=== PATIENT | female | born 1995 | race Caucasian/White ===

== ENCOUNTER → 2018-10-15 | Outpatient (CLI) | payer MEDICAID, SELFPAY ==
[2017-06-08 06:29] VITALS: BMI 33.0
[2018-10-15 20:39] LABS: Chlamydia Trachomatis by PCR Negative (Negative); Neisserai gonorrhoeae by PCR Negative (Negative); Probe Check PASS; Sample Adequacy Control PASS; Specimen Processing Control PASS
[2018-10-18 13:32] LABS: HPV Reflexed? NOT INDICATED
== END | disposition home or self-care (01) ==
PROVIDERS: Family Provider Family Medicine; PCP Family Medicine; Referring Provider Obstetrics & Gynecology; Visit Provider Obstetrics & Gynecology
DX: Z32.01 Encounter for pregnancy test, result positive (principal); Z12.4 Encounter for screening for malignant neoplasm of cervix; Z11.3 Encounter for screening for infections with a predominantly sexual mode of transmission
CPT/HCPCS: 87491; 87591; 88175; G0145

== ENCOUNTER → 2018-10-30 | Outpatient (CLI) | payer MEDICAID, SELFPAY ==
[2017-06-08 06:29] VITALS: BMI 33.0
[2018-10-30 16:40] LABS: Absolute Lymphocyte Count 1.82 X10^3/ul (0.83-4.51); Absolute Neutrophil Count 6.4 X10^3/uL (2.0-7.7); Basophil# 0.02 X10^3/uL; Basophil% 0.2 % (0-1); Eosinophil# 0.06 X10^3/uL; Eosinophils% 0.7 % (0-5); Hematocrit 43.8 % (37-47); Lymphocyte # 1.82 X10^3/ul (4.0); Lymphocyte % 20.9 % (19-41); Mean Corp Hgb Conc 34.2 g/gl (32-36); Mean Corpuscular Hgb 28.4 pg (27.0-32.0); Mean Platelet Vol. 9.5 fl (6.2-12.0); Monocyte# 0.45 X10^3/uL; Monocyte% 5.2 % (0-10); Neutrophil # 6.36 X10^3/uL (2.7-7.7); Neutrophil % 72.9 % (47-70); Platelet Count 332 K/mm3 (150-450); RBC Distribution Width CV 12.8 % (11.6-14.6); RBC Distribution Width SD 38.6 fl (35.1-43.9); Red Blood Count 5.28 M/mm3 (4.2-5.4); White Blood Count 8.7 K/mm3 (4.4-11.0)
[2018-10-30 16:41] LABS: Color, Urine Yellow (Yellow); Glucose, Dipstick Normal (Normal); Ketone-Dipstick Negative (Negative); Leukocyte Esterase-Dipstick Negative /ul (Negative); Nitrite-Dipstick Negative (Negative); Occult Blood-Urine 10 /ul (Negative); Protein-Dipstick Negative (Negative); Urine Bilirubin Dipstick Negative (Negative); Urine Clarity Clear (Clear); Urine Urobilinogen Normal (Normal); Urine pH 6.5 (5.0 - 8.0)
[2018-10-30 16:43] LABS: POSITIVE COUNT NO; POSITIVE DIFFERENTIAL NO; POSITIVE MORPHOLOGY NO
[2018-10-30 16:44] LABS: COTININE Drug Screen Negative (<200 ng/mL)
[2018-10-30 16:53] LABS: Amphetamine Urine VISTA NEGATIVE (<1000 ng/mL); Barbiturate Urine VISTA NEGATIVE (< 200 ng/mL); Benzodiazepine Urine VISTA NEGATIVE (< 200 ng/mL); Cocaine Urine VISTA NEGATIVE (< 300 ng/mL); Ecstacy Urine VISTA NEGATIVE (< 500 ng/mL); Methadone Urine VISTA NEGATIVE (< 300 ng/mL); PCP Urine VISTA NEGATIVE (< 25 ng/mL); THC Urine VISTA NEGATIVE (< 50 ng/mL); Vista UDS pH Range 6
[2018-10-30 17:10] LABS: Thyroid Stim Hormone (TSH) 1.39 uIU/mL (0.358-3.74)
[2018-10-30 17:51] LABS: HIV - WCH Non-Reactive (Nonreactive); Rubella IgG 53.5 IU/mL
[2018-11-01 03:40] LABS: Prenatal RPR NONREACTIVE (NONREACTIVE)
[2018-11-01 11:32] LABS: HEPATITIS B SURFACE AG Negative (Negative); Hep C Antibodies 0.1 s/co ratio (0.0-0.9)
== END | disposition home or self-care (01) ==
LOC: WOBLAB 15:30
PROVIDERS: Visit Provider Obstetrics & Gynecology
DX: Z34.81 Encounter for supervision of other normal pregnancy, first trimester (principal)
CPT/HCPCS: 36415; 80307; 81002; 84443; 85025; 86703; 86762; 86803; 87340

== ENCOUNTER → 2018-12-24 | Outpatient (CLI) | payer MEDICAID, SELFPAY | END | disposition home or self-care (01) | PROVIDERS: Referring Provider Obstetrics & Gynecology; Visit Provider Obstetrics & Gynecology | DX: Z34.82 Encounter for supervision of other normal pregnancy, second trimester (principal) | CPT/HCPCS: 36415; 82105; 82677; 84702 ==

== ENCOUNTER → 2019-03-21 12:59 | Outpatient (CLI) | payer MEDICAID, SELFPAY ==
[2019-03-21 14:14] LABS: Glucose Challenge Gest 1H 50g 85 mg/dL (70-140)
[2019-03-21 14:17] LABS: Hematocrit 38.4 % (37-47); Hemoglobin 12.3 g/dL (12.0-15.0); Mean Corpuscular Hgb 27.2 pg (27.0-32.0); Mean Platelet Vol. 9.4 fl (6.2-12.0); Platelet Count 248 K/mm3 (150-450); RBC Distribution Width CV 13.9 % (11.6-14.6); RBC Distribution Width SD 42.6 fl (35.1-43.9); Red Blood Count 4.52 M/mm3 (4.2-5.4); White Blood Count 8.4 K/mm3 (4.4-11.0)
== END ==
PROVIDERS: Visit Provider Obstetrics & Gynecology
DX: Z34.83 Encounter for supervision of other normal pregnancy, third trimester (principal)
CPT/HCPCS: 36415; 82950; 85027

== ENCOUNTER → 2019-05-15 16:40 | Outpatient (CLI) | payer MEDICAID, SELFPAY ==
[2017-06-08 06:29] VITALS: BMI 33.0
== END ==
PROVIDERS: Visit Provider Obstetrics & Gynecology
DX: Z36.85 Encounter for antenatal screening for Streptococcus B (principal)
CPT/HCPCS: 87081

== ENCOUNTER 2019-06-14 09:08 | Inpatient (IN) | payer MEDICAID, SELFPAY ==
[2019-06-14 09:36] VITALS: BMI 77.9
[2019-06-14 10:10] LABS: Absolute Lymphocyte Count 1.49 X10^3/uL (0.83-4.51); Absolute Neutrophil Count 6.3 X10^3/uL (2.0-7.7); Basophil# 0.03 X10^3/uL; Basophil% 0.4 % (0-1); Eosinophil# 0.08 X10^3/uL; Hematocrit 38.6 % (37-47); Hemoglobin 13.5 g/dL (12.0-15.0); Lymphocyte # 1.49 X10^3/ul (4.0); Lymphocyte % 17.7 % (19-41); Mean Corpuscular Hgb 28.6 pg (27.0-32.0); Mean Corpuscular Volume 81.8 fL (81-99); Mean Platelet Vol. 9.5 fl (6.2-12.0); Monocyte# 0.45 X10^3/uL; Monocyte% 5.3 % (0-10); NRBC Flagged by Analyzer 0 % (0-5); Neutrophil # 6.34 X10^3/uL (2.7-7.7); Neutrophil % 75.2 % (47-70); Platelet Count 212 K/mm3 (150-450); RBC Distribution Width CV 14.5 % (11.6-14.6); Red Blood Count 4.72 M/mm3 (4.2-5.4); White Blood Count 8.4 K/mm3 (4.4-11.0)
--- NOTE | 2019-06-14 11:51 | HP.PCM_ITS ---
- Problem List (1) Active labor at term Status: Acute (2) 40 weeks gestation of Status: Acute History Date of Admission: 06/14/19 Final NOAH: 06/08/19 Final NOAH Source: US <20 weeks Gestational age: 40 Weeks and 6 Days History of this : This is a 23 year-old, G [2], P [1], at 40 6/7 weeks gestational age c/o contractions. Allergies No Known Allergies Allergy (Verified 06/08/17 06:00) Home Medications: Home Medications Ibuprofen [Motrin] 800 mg PO TID PRN PRN #30 tab 06/08/17 Vits [Prenatabs FA] 1 tablet PO DAILY 06/08/17 Smoking Status: Former smoker Alcohol: None Number of Fetus(es): 1 NST - FHR Rate Baby A Baseline: 145 Variability:: Moderate Accelerations:: 15 x 15 Decelerations:: None NST Reactive:: Yes FHR Category:: Category I Uterine Activity:: 3-4/10 min History Past Pregnancies: Past Pregnancies Delivery Date Name GA/ Weeks Outcome Route Wt Infant Sex Labor Length Anesthesia Delivery Location FOB 05/2017 [facility] 41 Living [id number] M 10 None [facility] Labs: Mom's Problem List Problem Status Onset Code 40 weeks gestation of Acute [id number].[id number] Mom's Labs & Results 06/14/19 06/14/19 09:57 09:57 WBC 8.4 RBC 4.72 Hgb 13.5 Hct 38.6 MCV 81.8 MCH 28.6 MCHC 35.0 RDW Std Deviation 42.0 RDW Coeff of Gail 14.5 Plt Count 212 MPV 9.5 Immature Gran % (Auto) 0.400 Neut % (Auto) 75.2 H Lymph % (Auto) 17.7 L [place] % (Auto) 5.3 Eos % (Auto) 1.0 Baso % (Auto) 0.4 Absolute Neuts (auto) 6.3 Absolute Lymphs (auto) 1.49 Nucleated RBC % 0 Blood Type A POSITIVE Antibody Screen NEGATIVE Course Did the patient receive Yes care? Labs Blood Type: A RH: POSITIVE RPR/VDRL/Syphilis Nonreactive Rubella status Immune HbSAg Negative Date Done: 10/30/18 Chlamydia Negative Gonorrhea Negative HIV/AIDS Non-Reactive Group B Strep: Negative Current Obstetrical History Gestational Diabetes No Incompetent Cervix No Infertility No IUGR No Macrosomia No Hypertension/Pre-eclampsia No Placenta Previa/Abruption No PTL/PROM No Uterine anomaly No Oligohydramnios No Polyhydramnios No Multiple gestation No Past Medical History Asthma No Diabetes No Hypertension No Heart disease No Mitral valve prolapse No Neurologic/Seizure disorder/ No Migraines Kidney disease No Liver disease No Varicosities No Clotting disorders/Hx of DVT No Thyroid Dysfunction No Other medical diseases No Psychiatric disorders No Major trauma No Abnormal PAP smear No Sleep apnea No Mammogram in the last 2 years No Social History Marital Status: Alleged father Hamzah Hx Smoking Yes Smoking Status Former smoker Expected Delivery Method: Spontaneous Vaginal Physical Exam Vitals: avss General: Alert, Oriented x3, Cooperative, No apparent distress HEENT: Atraumatic, Normocephalic Cardiovascular: Regular rate, Regular Rhythm, Normal S1, Normal S2 Lungs: Normal air movement Abdomen: Soft, Non Tender, Non-Distended, Gravid Neurological: Neuro grossly intact PROGRAM EVALUATOR: Normal external genitalia Estimated gestational size: Appropriate for gestational size Presentation: Cephalic Cervix Dilation (cm): 4 Station: -2 Effacement (%): 90 Assessment/Plan All Active Problems 40 weeks gestation of (Acute) Active labor at term (Acute) This is a 23 year-old, G [2], P [1], at 40 6/7 weeks gestational age in labor. Expectant management
[2019-06-14] MEDS: Oxytocin 30 units/NS 500 ml 30 UNITS/500 ML IV.SOLN 334 UNITS IV (12:20)
--- NOTE | 2019-06-14 12:43 | PCM.OPRPT ---
Problem List (1) Active labor at term Status: Acute (2) 40 weeks gestation of Status: Acute Report of Operation Date of Procedure: 06/14/19 Pre-Operative Diagnosis: 40 6/7wga Surgery/Procedure Performed:: 40 6/7wga Vaginal Delivery Maternal Presentation: Active Labor Amniotic Membrane Rupture Type: Spontaneous Rupture of Membrane time: 06/14/19 1206 Amniotic Fluid Description: Clear Final NOAH: 06/08/19 Final NOAH Source: US <20 weeks Gestational age: 40 Weeks and 6 Days Date of Procedure: 06/14/19 Pre-Operative Diagnosis: 40 6/7wga Post-Operative Diagnosis: 40 6/7wga Surgery/ Procedure Performed: Spontaneous Vaginal Delivery Type of Anesthesia: None Description of Procedure: Patient was FD/+1 station and pushed to deliver head in MARYANNE. A nuchal cord was reduced. shoulders delivered with ease to reveal a male . The infant was placed on the maternal abdomen and further attended by nursery personnel. The cord was doubly clamped and cut. Cord gas specimen were obtained. The placenta delivered spontaneously and appeared intact on inspection. A first degree perineal laceration was repaired with 3-0 Vicryl Rapide. Good hemostasis attained. Sponge and needle counts correct x 2. Presentation: Vertex Placenta Disposition: [facility] Cord Vessel Description: 3 Vessels Cord Gases drawn per routine: ABG, VBG Cord Entanglement: Around neck x 1, loose Drain: Amos to straight drain Estimated Blood Loss: 200 ml A gender: Male (1 minute): 8 (5 minute): 9 Episiotomy Description: None Laceration: Midline, 1st degree Medications given after delivery: IV Pitocin Complications: None
[2019-06-14] MEDS: Ibuprofen 600 MG Tablet PO ×2 (13:34→20:07)
[2019-06-14 15:43] VITALS: BP 124/79; PULSE 80; RESP 16; TEMP 36.1
[2019-06-14] MEDS: Acetaminophen 500 MG Tablet 1000 MG PO (15:52)
--- NOTE | 2019-06-14 17:30 | NURSING ---
pt passed dark 50cc clot after . Fundus massaged to firm. Lochia small.
[2019-06-14 19:50] VITALS: BP 115/77; PULSE 81; RESP 18; TEMP 36.5
[2019-06-15] VITALS: BP 118/71; PULSE 84; RESP 16; TEMP 36.6
[2019-06-15 04:00] VITALS: BP 124/76; PULSE 76; RESP 16; TEMP 36.4
[2019-06-15 09:40] VITALS: BP 134/82; PULSE 92; RESP 20; TEMP 36.5
--- NOTE | 2019-06-15 10:12 | PCM.PN.OB ---
Patient Problems: Active and Suspected Problems 40 weeks gestation of (Acute) Subjective: Soniya reports her bottom is sore, but she has no difficulty walking. Denies urinary symptoms or heavy lochia. She feels well. Infant clusterfed overnight, nursing well. He is getting a circumcision this morning. Desires to go home today. Objective: AVSS - Physical Exam Vitals/I&O's: Vital Signs Temp Pulse Resp BP 97.7 F L 92 20 H 134/82 H 06/15/19 09:40 06/15/19 09:40 06/15/19 09:40 06/15/19 09:40 Oxygen Delivery Method Room Air Weight: 232.4 kg Body Mass Index (BMI) 77.9 Intake and Output for Last 24 Hours 06/13/19 06/14/19 06/15/19 23:59 23:59 23:59 Intake Total 500 / 500 Balance 500 / 500 General: Alert, Oriented x3, Cooperative, No apparent distress HEENT: Atraumatic, Normocephalic Lungs: Normal air movement Cardiovascular: Regular rate, Regular Rhythm, Normal S1, Normal S2 Abdomen: Soft, Non Tender, Non-Distended, - - Fundus firm and nontender at 1 FW below umbilicus, lochia scant Extremities: No edema, No Calf Tenderness Neurological: Neuro grossly intact Psych/Mental Status: Normal Affect, Appropriate, Alert and oriented to time, place, person, mood and affect Laboratory Results 06/14/19 09:57: Blood Type A POSITIVE, Antibody Screen NEGATIVE Current Medications Acetaminophen (Tylenol) 1,000 mg PO Q8H PRN PRN PRN Reason: Pain Score 1-3/10 Last Admin: 06/14/19 15:52 Dose: 1,000 mg Documented by: Bisacodyl (Dulcolax) 10 mg RECTAL UD PRN PRN Reason: If no BM Dibucaine (Dibucaine) 1 applic TOPICAL TID PRN PRN; Protocol PRN Reason: Discomfort Hydrocortisone (Hytone) 1 applic TOPICAL TID PRN PRN; Protocol PRN Reason: Discomfort Ibuprofen (Motrin) 600 mg PO Q6H PRN PRN PRN Reason: Pain Score 1-3/10 Last Admin: 06/14/19 20:07 Dose: 600 mg Documented by: Methylergonovine Maleate (Methergine) 0.2 mg IM X1 PRN PRN Reason: Excess bleeding/uterine atony Ondansetron HCl (Zofran) 4 mg IV Q4H PRN PRN PRN Reason: Nausea Senna/Docusate Sodium (Senokot-S, Tania-Colace) 1 - 2 tablet PO DAILY PRN PRN PRN Reason: Constipation Simethicone (Mylicon) 80 mg PO PCHS PRN PRN Reason: Indigestion/Stomach pain Sodium Chloride () 5 - 15 ml IV UD PRN PRN Reason: SALINE FLUSH Medical Necessity - Tobacco Use Smoking Status: Former smoker Assessment/Plan All Active Problems 40 weeks gestation of (Acute) Active labor at term (Acute) This is a 23 year-old, G [2], P [2001] PPD#1 s/p doing well. -A pos, Rub immune - -Routine care -LARC declined -d/c home today
--- NOTE | 2019-06-15 10:15 | DCINST_ITS ---
Discharge Diet: No Restrictions Discharge Activity: Return to Normal Activity, May Shower, May Take a Tub Bath May resume sexual activity in: 6 weeks Lifting Restrictions: 10-20 lb Suture Line Care: Avoid Pulling/Pushing Cleanse incision/area with: Soap & Water Additional Instructions: If you experience any of the following, contact your healthcare provider. * Bleeding that soaks a pad every hour for 2 hours * Fever 100.4 or higher * Unrelieved incision or abdominal pain * Swelling, redness, discharge or bleeding from your incision or episiotomy site * Your incision begins to separate * Problems urinating (including inability to urinate or burning while urinating). * Visual changes * Severe headache * Flu-like symptoms * Pain or redness in one of both of your breasts * Pain, warmth, tenderness or swelling in your legs, especially the calf area * Frequent nausea and vomiting * Symptoms of depression or anxiety If you experience any of the following, call 911 or go to the nearest Emergency Room. * Chest pain * Problems breathing * Seizure activity * Partial or complete paralysis of a body part, slurred speech, weakness or drooping of the face, or a sudden inability to walk or hold your balance Allergies/Adverse Reactions: Allergies No Known Allergies Allergy (Verified 06/08/17 06:00) Medications to take at Discharge Vits [Prenatabs FA] 1 tablet PO DAILY 06/08/17 Ibuprofen [Motrin] 600 mg PO Q8H PRN PRN #30 tab 06/15/19 Please Follow Up With: Clair Barajas MD When: 6 weeks Primary Care Physician: Benton Navarro MD [Primary Care Provider] - Test Results: Test results from this visit will be discussed in further detail at your follow- up appointment, if applicable.
--- NOTE | 2019-06-15 10:15 | PCM.DCVAG ---
Discharge Diet: No Restrictions Discharge Activity: Return to Normal Activity, May Shower, May Take a Tub Bath May resume sexual activity in: 6 weeks Lifting Restrictions: 10-20 lb Suture Line Care: Avoid Pulling/Pushing Cleanse incision/area with: Soap & Water Additional Instructions: If you experience any of the following, contact your healthcare provider. Bleeding that soaks a pad every hour for 2 hours Fever 100.4 or higher Unrelieved incision or abdominal pain Swelling, redness, discharge or bleeding from your incision or episiotomy site Your incision begins to separate Problems urinating (including inability to urinate or burning while urinating). Visual changes Severe headache Flu-like symptoms Pain or redness in one of both of your breasts Pain, warmth, tenderness or swelling in your legs, especially the calf area Frequent nausea and vomiting Symptoms of depression or anxiety If you experience any of the following, call 911 or go to the nearest Emergency Room. Chest pain Problems breathing Seizure activity Partial or complete paralysis of a body part, slurred speech, weakness or drooping of the face, or a sudden inability to walk or hold your balance Allergies/Adverse Reactions: Allergies No Known Allergies Allergy (Verified 06/08/17 06:00) Medications to take at Discharge Vits [Prenatabs FA] 1 tablet PO DAILY 06/08/17 Ibuprofen [Motrin] 600 mg PO Q8H PRN PRN #30 tab 06/15/19 Please Follow Up With: Clair Barajas MD When: 6 weeks Primary Care Physician: Benton Navarro MD [Primary Care Provider] - Test Results: Test results from this visit will be discussed in further detail at your follow-up appointment, if applicable.
[2019-06-15 10:16] VITALS: BMI 35.2
[2019-06-15 14:15] VITALS: BP 122/72; PULSE 88; RESP 24; TEMP 36.8
[2019-06-15 20:00] VITALS: BP 122/73; PULSE 89; RESP 16; TEMP 36.8
== END 2019-06-15 21:30 | disposition home or self-care (01) | DRG 560 ==
PROVIDERS: Admitting Provider Obstetrics & Gynecology; Family Provider Family Medicine; PCP Family Medicine; Referring Provider Obstetrics & Gynecology; Visit Provider Obstetrics & Gynecology
DX: O48.0 Post-term pregnancy (principal); O69.81X0 Labor and delivery complicated by cord around neck, without compression, not applicable or unspecified; O70.0 First degree perineal laceration during delivery; Z87.891 Personal history of nicotine dependence; Z3A.40 40 weeks gestation of pregnancy; Z37.0 Single live birth
CPT/HCPCS: 59025; 59050; 85025; 86850; 86900; 86901; 99218; G0378

== ENCOUNTER → 2021-01-24 14:13 | Outpatient (CLI) | payer MEDICAID, SELFPAY ==
--- NOTE | 2021-01-24 14:18 | US_ITS ---
STUDY: ULTRASOUND BREAST - RIGHT REASON FOR EXAM: Female, 25 years old. TECHNIQUE: Axial and longitudinal images of the RIGHT breast were performed with a high resolution ultrasound transducer. # OF IMAGES: 39 COMPARISON: Mammogram obtained on 01/24/2021 FINDINGS: RIGHT Breast: A targeted right breast ultrasound was performed of a questionable palpable lump in the superior lateral aspect of the right breast. No underlying masses or lesions are identified. The right breast parenchyma in the superior lateral right breast is normal. US/Breast Limited Unilateral IMPRESSION: Normal targeted right breast ultrasound. ASSESSMENT CATEGORY: BIRADS Category 1: Negative. A letter regarding these results will be sent to the patient by the facility within 30 days. Electronically Signed: Pranav Green DO at 16:10 EDT Tel , Service support ,
--- NOTE | 2021-01-24 14:18 | BI_ITS ---
MAMMOGRAPHY - BILATERAL DIAGNOSTIC REASON FOR EXAM: Female, 25 years old. LUMP PERTINENT HISTORY: Palpable density in the superior lateral aspect of the right breast TECHNIQUE: Digital examination. Mediolateral oblique (MLO) and craniocaudad (CC) views of both breasts were obtained. CAD: COMPARISON: None. FINDINGS: Breast Composition: Dense There are no dominant masses or suspicious calcifications. No other significant abnormalities are identified. Due to the palpable density in the superior lateral aspect of the right breast a targeted right breast ultrasound will be performed for additional evaluation. BI/DIAG MAMM W/CAD, BILAT IMPRESSION: Stable bilateral diagnostic mammogram. ASSESSMENT CATEGORY: BIRADS Category 1: Negative. A letter regarding these results will be sent to the patient by the facility within 30 days. FOLLOW UP RECOMMENDATION: Approximately 10% of breast cancers are not detected by mammography. A normal mammogram should not delay biopsy of a clinically suspicious abnormality. Electronically Signed: Pranav Green DO at 16:14 EDT Tel , Service support ,
== END ==
PROVIDERS: PCP Internal Medicine; Referring Provider Obstetrics & Gynecology; Visit Provider Obstetrics & Gynecology
DX: N63.11 Unspecified lump in the right breast, upper outer quadrant (principal)
CPT/HCPCS: 76642; 77062; 77066; G0279

== ENCOUNTER → 2022-12-12 | Outpatient (CLI) | payer MEDICAID, SELFPAY ==
[2022-12-15 19:20] LABS: HPV Reflexed? NOT INDICATED
== END | disposition home or self-care (01) ==
LOC: LABSPEC 10:57
PROVIDERS: PCP Internal Medicine; Visit Provider Student in an Organized Health Care Education/Training Program
DX: Z12.4 Encounter for screening for malignant neoplasm of cervix (principal)
CPT/HCPCS: 88175; G0145